=== PATIENT | female | born 1990 | race Caucasian/White ===

== ENCOUNTER 2022-04-20 17:25 | Observation (INO) | payer OTHER ==
[~2022-04-20] VITALS: Ht 162.6 cm; Wt 78.5 kg
[2022-04-20 17:55] LABS: HEMOGLOBIN 13.8 gm/dl (12.3-15.3); RED BLOOD COUNT 4.56 M/UL (4.00-5.10); WHITE BLOOD COUNT 8.1 K/UL (4.5-11.0)
[2022-04-20 18:09] LABS: BUN/CREATININE RATIO 7 (0-10)
== END 2022-04-21 13:26 | disposition home or self-care (01) ==
LOC: ER1 17:25 → CDU 23:02
PROVIDERS: Student in an Organized Health Care Education/Training Program; ADMIT Obstetrics & Gynecology
DX: O00.90 Unspecified ectopic pregnancy without intrauterine pregnancy (principal); Z88.1 Allergy status to other antibiotic agents; Z3A.01 Less than 8 weeks gestation of pregnancy
CPT/HCPCS: 76817; 80053; 81001; 83690; 84702; 85025; 86900; 86901; 96360; 96361; 96367; 96372; 96374; 96375; 96376; 99284; G0378; J2270; J2550; J9250

== ENCOUNTER 2022-04-22 18:31 | Observation (INO) | payer OTHER ==
[2022-04-22 19:33] LABS: HEMOGLOBIN 14.1 gm/dl (12.3-15.3); RED BLOOD COUNT 4.74 M/UL (4.00-5.10); WHITE BLOOD COUNT 9.3 K/UL (4.5-11.0)
[2022-04-22 19:49] LABS: BUN/CREATININE RATIO 11 (0-10)
[2022-04-23] MEDS ORDERED: PERCOCET 5-3251 EACH PO (09:19)
== END 2022-04-23 10:58 | disposition home or self-care (01) ==
LOC: ER1 18:31 → CDU 19:36 → OB 04-23 08:46
PROVIDERS: Physician Assistant; ADMIT Obstetrics & Gynecology
PROC: 10D28ZZ Extraction of Products of Conception, Ectopic, Via Natural or Artificial Opening Endoscopic (ICD-10-PCS; principal; 2022-04-22 19:58)
DX: O00.90 Unspecified ectopic pregnancy without intrauterine pregnancy (principal); N83.8 Other noninflammatory disorders of ovary, fallopian tube and broad ligament; G43.909 Migraine, unspecified, not intractable, without status migrainosus; Z88.1 Allergy status to other antibiotic agents
CPT/HCPCS: 80053; 84702; 85025; 93005; 96374; 96375; 99285; G0378; J0690; J0780; J1100; J1170; J1885; J2001; J2270; J2405; J2704; J2710; J2795; J3010